=== PATIENT | male | born 1985 | race Caucasian/White ===

== ENCOUNTER 2022-02-16 09:14 | Emergency (ER) | payer BC ==
[~2022-02-16] VITALS: Ht 170.2 cm; Wt 75.0 kg
[2022-02-16 09:28] VITALS: BP 125/62
[2022-02-16] MEDS ORDERED: KETOROLAC 30MG/ML VIAL IV ONE (10:30)
[2022-02-16] MEDS ORDERED: SODIUM CHLORIDE 0.9% 1,000 ML IV ONE (10:30)
[2022-02-16] MEDS ORDERED: ONDANSETRON HCL 4MG/2ML INJ IV ONE (10:30)
[2022-02-16 11:35] LABS: BASOPHILS % 0.9 % (0.0-2.0); EOSINOPHILS % 0.5 % (0.0-5.0); HEMATOCRIT. 49.3 % (42.0-52.0); HEMOGLOBIN. 16.7 g/dL (14.0-18.0); LYMPHOCYTES % 30.3 % (20.0-50.0); MEAN CORPUSCULAR VOLUME 88.4 fL (80.0-94.0); MEAN PLATELET VOLUME 8.6 fl (7.4-10.4); MONOCYTES % 6.1 % (2.0-8.0); NEUTROPHILS % 62.2 % (40.0-76.0); PLATELET 254 x1000/uL (130-400); RED BLOOD CELL COUNT 5.58 mill/uL (4.7-6.1); RED CELL DISTRIBUTION WIDTH 12.4 % (11.6-14.6)
[2022-02-16 11:44] LABS: CHLORIDE 107 mEq/L (98-107)
[2022-02-16 11:47] LABS: INR 1.1; PROTHROMBIN TIME 11.4 sec (9.6-11.0)
[2022-02-16 13:29] LABS: CLARITY URINE CLEAR (CLEAR); COLOR URINE YELLOW (YELLOW); KETONES URINE NEGATIVE (NEGATIVE); LEUKOCYTE ESTERASE URINE NEGATIVE (NEGATIVE); NITRITE URINE NEGATIVE (NEGATIVE); OCCULT BLOOD URINE NEGATIVE (NEGATIVE); PH URINE 6.5 (4.5-8.0); PROTEIN URINE NEGATIVE (NEGATIVE); SPECIFIC GRAVITY URINE 1.023 (1.005-1.030); UROBILINOGEN URINE 0.2 E.U./dL (0.2-1.0)
[2022-02-16] MEDS ORDERED: TOPUD MT (15:06)
[2022-02-16] MEDS ORDERED: FAMO-135 MT (15:06)
[2022-02-16] MEDS ORDERED: METH-653 MT (15:26)
== END 2022-02-16 15:32 | disposition home or self-care (01) ==
LOC: ER 09:14
DX: R10.32 Left lower quadrant pain (principal); K21.9 Gastro-esophageal reflux disease without esophagitis; Z87.19 Personal history of other diseases of the digestive system
CPT/HCPCS: 36415; 74176; 80053; 81003; 83605; 83690; 85025; 85610; 93005; 96374; 96375; 99285; J1885; J2405; J7030

== ENCOUNTER 2022-04-08 23:12 | Emergency (ER) | payer BC ==
[~2022-04-08] VITALS: Ht 172.7 cm; Wt 77.0 kg
[~2022-04-08 23:12] MED LIST: FAMO-135 MT; METH-653 MT; TOPUD MT
[2022-04-08 23:27] VITALS: BP 123/80
[2022-04-09] MEDS ORDERED: ACETAMINOPHEN 325MG TABLET PO STA (00:50)
[2022-04-09] MEDS ORDERED: FAMOTIDINE 20MG TABLET PO ONE (01:00)
[2022-04-09] MEDS ORDERED: MAGNESIUM/ALUMINUM HYDROXIDE/SIMETHICONE 30ML UDC PO ONE (01:00)
[2022-04-09 01:09] LABS: BASOPHILS % 1.2 % (0.0-2.0); EOSINOPHILS % 3.7 % (0.0-5.0); HEMATOCRIT. 43.1 % (42.0-52.0); HEMOGLOBIN. 15.1 g/dL (14.0-18.0); LYMPHOCYTES % 44.7 % (20.0-50.0); MEAN CORPUSCULAR HEMOGLOBIN 30.2 pg (28.0-32.0); MEAN CORPUSCULAR VOLUME 86.4 fL (80.0-94.0); MEAN PLATELET VOLUME 7.5 fl (7.4-10.4); MONOCYTES % 9.5 % (2.0-8.0); NEUTROPHILS % 40.9 % (40.0-76.0); PLATELET 271 x1000/uL (130-400); RED BLOOD CELL COUNT 4.99 mill/uL (4.7-6.1); RED CELL DISTRIBUTION WIDTH 12.7 % (11.6-14.6)
[2022-04-09 01:11] LABS: CHLORIDE 105 mEq/L (98-107)
[2022-04-09 01:27] LABS: CLARITY URINE CLEAR (CLEAR); COLOR URINE YELLOW (YELLOW); KETONES URINE NEGATIVE (NEGATIVE); LEUKOCYTE ESTERASE URINE NEGATIVE (NEGATIVE); NITRITE URINE NEGATIVE (NEGATIVE); OCCULT BLOOD URINE NEGATIVE (NEGATIVE); PH URINE 6.5 (4.5-8.0); PROTEIN URINE NEGATIVE (NEGATIVE); SPECIFIC GRAVITY URINE 1.008 (1.005-1.030); UROBILINOGEN URINE 0.2 E.U./dL (0.2-1.0)
[2022-04-09] MEDS ORDERED: FAMO20TA8 MT (02:31)
[2022-04-09] MEDS ORDERED: ACET-2708 PO (02:31)
[2022-04-09] MEDS ORDERED: CALC355O19 PO (02:31)
== END 2022-04-09 02:41 | disposition home or self-care (01) ==
LOC: ER 23:12
DX: R10.12 Left upper quadrant pain (principal); K21.9 Gastro-esophageal reflux disease without esophagitis; K29.70 Gastritis, unspecified, without bleeding; Z86.19 Personal history of other infectious and parasitic diseases; Z91.041 Radiographic dye allergy status
CPT/HCPCS: 36415; 71045; 80053; 81003; 85025; 93005; 99285

== ENCOUNTER 2022-08-18 21:33 | Emergency (ER) | payer SELFPAY ==
[~2022-08-18] VITALS: Ht 170.2 cm; Wt 77.0 kg
[~2022-08-18 21:33] MED LIST changes: +ACET-2708 PO; +CALC355O19 PO; +FAMO20TA8 MT
[2022-08-18 21:57] VITALS: BP 123/77
[2022-08-19] MEDS ORDERED: KETOROLAC 60MG/2ML VIAL IM STA (01:10)
[2022-08-19 01:25] LABS: CLARITY URINE CLEAR (CLEAR); COLOR URINE YELLOW (YELLOW); KETONES URINE NEGATIVE (NEGATIVE); LEUKOCYTE ESTERASE URINE NEGATIVE (NEGATIVE); NITRITE URINE NEGATIVE (NEGATIVE); OCCULT BLOOD URINE NEGATIVE (NEGATIVE); PROTEIN URINE NEGATIVE (NEGATIVE); SPECIFIC GRAVITY URINE 1.011 (1.005-1.030); UROBILINOGEN URINE 0.2 E.U./dL (0.2-1.0)
[2022-08-19] MEDS ORDERED: PYR200 PO (02:55)
[2022-08-19] MEDS ORDERED: NAPR-681 PO (02:55)
== END 2022-08-19 03:05 | disposition home or self-care (01) ==
LOC: ER 21:33
DX: R51.9 Headache, unspecified (principal); R30.0 Dysuria; Z79.899 Other long term (current) drug therapy
CPT/HCPCS: 81003; 99283; J1885

== ENCOUNTER 2023-03-31 13:35 | Emergency (ER) | payer BC, MEDICAID, OTHER ==
[~2023-03-31] VITALS: Ht 175.3 cm; Wt 78.0 kg
[~2023-03-31 13:35] MED LIST changes: +NAPR-681 PO; +PYR200 PO
[2023-03-31 13:52] VITALS: BP 129/70; PULSE 68; RESP 16; TEMP 98.6; O2SAT 100
[2023-03-31 15:15] LABS: CLARITY URINE CLEAR (CLEAR); COLOR URINE YELLOW (YELLOW); GLUCOSE URINE NEGATIVE (NEGATIVE); KETONES URINE TRACE (NEGATIVE); LEUKOCYTE ESTERASE URINE NEGATIVE (NEGATIVE); NITRITE URINE NEGATIVE (NEGATIVE); OCCULT BLOOD URINE NEGATIVE (NEGATIVE); PH URINE 6.5 (4.5-8.0); PROTEIN URINE NEGATIVE (NEGATIVE); SPECIFIC GRAVITY URINE 1.023 (1.005-1.030)
[2023-04-04 13:11] LABS: CHLAMYDIA TRACHOMATIS NAA Negative (Negative); NEISSERIA GONORRHOEAE NAA Negative (Negative)
== END 2023-03-31 15:56 | disposition home or self-care (01) ==
LOC: ER 13:37
DX: R30.0 Dysuria (principal)
CPT/HCPCS: 81003; 87491; 87591; 99283